=== PATIENT | female | born 1995 | race American Indian/Alaskan Native ===

== ENCOUNTER 2022-10-21 21:42 | Emergency (ER) | payer OTHER ==
[2022-10-21] MEDS ORDERED: Ketorolac 30 MG/ML SDV IM ONE (22:22)
== END 2022-10-21 22:30 ==
LOC: JP.ED 21:42
DX: O90.0 Disruption of cesarean delivery wound (principal); Z87.891 Personal history of nicotine dependence
CPT/HCPCS: 36415; 85025; 96372; 99284; J1885